=== PATIENT | female | born 1985 | race Two or more races ===

== ENCOUNTER 2017-04-13 05:59 | Day surgery (SDC) | payer OTHER ==
[2017-04-10 08:06] LABS: HEMOGLOBIN 14.1 g/dL (12-16); MCH 29.4 pg (26.0-34.0); MCHC 34.4 g/dL (31.0-37.0); MCV 85.4 fL (80.0-100.0); MEAN PLATELET VOLUME 9.5 fL (7.4-10.4); RBC 4.8 10x6/uL (4.00-5.40); RDW 13.1 % (11.5-14.5); WBC 9.9 10x3/uL (4.8-10.8)
[~2017-04-13] VITALS: Ht 162.6 cm; Wt 81.6 kg
--- NOTE | ~2017-04-13 | OP ---
PATIENT NAME: PASTORA BRADEN MEDICAL RECORD: [id number] :86 LOCATION:[facility] ADMISSION DATE: SURGEON: DALLIN MURCIA MD DATE OF OPERATION: 04/13/2017 PREOPERATIVE DIAGNOSIS: Chronic right ankle instability. POSTOPERATIVE DIAGNOSIS: Chronic right ankle instability. PROCEDURES: 1. Brostrom procedure to the right ankle. 2. Internal brace to the right ankle. SURGEON: Dallin Murcia MD. ANESTHESIA: General. INTRAOPERATIVE COMPLICATIONS: None. SUMMARY OF PATHOLOGIC FINDINGS: The patient had a very lax ankle with tears of the AITF as well as calcaneofibular ligament. OPERATIVE SUMMARY IN DETAIL: After obtaining the appropriate preoperative orthopedic surgery consent as well as anesthetic consultation, evaluation and clearance, the patient was brought to the operating room and placed on the table in supine position. After adequate general laryngeal mask airway was administered, the patient was placed in a left lateral decubitus position. All pressure points were well padded to include down leg peroneal pad as well as axillary roll. The patient was held firmly to the operating table using the vacuum pack suction system. Right lower extremity was prepared with a tourniquet about the proximal aspect. The right lower extremity was then prepped and draped in routine sterile fashion. The leg was elevated and exsanguinated, tourniquet inflated to 350 mmHg. Curvilinear incision was made over the anterolateral aspect of the fibula down the distal, approximately 2 cm. Dissection was carried down to find a grossly attenuated AITF ligament. Still, dissection was done just below the articular surface of the talus. At this point, the 3.5 SwiveLock from [employer] loaded with FiberTape was then anchored laterally with a 4.75 SwiveLock in the neck of the talus for the internal brace. Tip of a hemostat was utilized to be sure not over tighten the internal ring. Having completed this, 3 suture tacks were utilized at approximately the 3 o'clock, 5 o'clock and 7 o'clock positions. The sutures of which were taken out to the AITF as well as distally through the calcaneofibular ligament and reapproximated with a 2.0 PushLocks more proximally. This was all done, holding the foot in eversion. A 2.0 FiberWire was then used to oversew the entire construct including the periosteum. Finally, a 2-0 Vicryl was utilized to reapproximate the skin edges and finally, the skin was closed with skin luca. Sterile dressings were applied. A well molded and well padded L&U splint was placed after the tourniquet was deflated. Having completed this, the patient was awakened, taken to the recovery room in stable condition. All final needle and sponge counts were correct. TRANSINT:[id number] Voice Confirmation ID: [id number] DOCUMENT ID: [id number] OPERATIVE REPORT [id number] PASTORA BRADEN MD, DALLIN BRYANT CC: [id number] DICTATION DATE: 04/13/17 1040 SKILLED NURSING CASE MANAGER: 04/13/17 1709 [facility] 04/13/17 [id number] [place] [address]
[~2017-04-13 05:59] MED LIST: FLUTICASONE PRO16 GM NASAL; ULTRAM50 MG PO
[2017-04-13] MEDS ORDERED: CLEOCIN HCL300 MG PO (08:08)
[2017-04-13] MEDS ORDERED: BENADRYL25 MG PO (08:09)
[2017-04-13] MEDS ORDERED: NYQUIL D COLD295 ML PO (08:10)
[2017-04-13 08:25] VITALS: BP 124/75; Ht 162.6 cm; Wt 81.6 kg
[2017-04-13 08:50] LABS: HCG URINE NEGATIVE (NEGATIVE)
[2017-04-13] MEDS ORDERED: PERCOCET 10/3251 TA1 PO (10:37)
--- NOTE | 2017-04-13 12:00 | NUR ---
PATIENT AMBULATES TO BATHROOM USING CRUTCHES, WITHOUT DIFFICULTY. PATIENT AWARE OF NEED TO MAINTAIN STRICT NON-WEIGHT BEARING STATUS ON RIGHT LOWER EXTREMITY. PIV DC'D WITH TIP INTACT. PATIENT DRESSING IN PERSONAL CLOTHING
== END 2017-04-13 12:10 | disposition home or self-care (01) ==
LOC: D.OPS 05:59 → D.PAN 08:45 → D.OPS 08:45 → D.PAN 09:00 → D.OPS 09:00
PROVIDERS: Anesthesiology; Orthopaedic Surgery
DX: S93.411A Sprain of calcaneofibular ligament of right ankle, initial encounter (principal); M25.371 Other instability, right ankle; J45.909 Unspecified asthma, uncomplicated; Z01.812 Encounter for preprocedural laboratory examination